=== PATIENT | male | born 2000 | race Two or more races ===

== ENCOUNTER 2023-04-03 14:40 | Emergency (ER) | payer OTHER ==
[~2023-04-03] VITALS: Ht 182.9 cm; Wt 81.6 kg
[~2023-04-03 14:40] MED LIST: KETO10TA2 PO; NORFLEX100MG PO
[2023-04-03 17:56] LABS: HEMATOCRIT 43.3 % (39.0-48.0); HEMOGLOBIN 14.9 g/dL (13-16.00); MEAN CELL VOLUME 84.1 fL (80.0-100.00); MEAN CORPUSCULAR HEMOGLOBIN 28.9 pg (27.00-32.0); MEAN CORPUSCULAR HGB CONC 34.4 g/dl (32.0-36.0); PLATELET COUNT 399 K/uL (150-450); RED BLOOD COUNT 5.14 M/uL (4.00-6.00); RED CELL DISTRIBUTION WIDTH 13.4 % (11.5-14.5)
[2023-04-03 18:12] LABS: PH,URINE 6.5 (5.0-8.0); URINE APPEARANCE Clear; URINE BILIRRUBIN Negative (NEGATIVE); URINE BLOOD Negative; URINE COLOR Yellow; URINE GLUCOSE Negative (NEGATIVE); URINE LEUKOCYTE Negative; URINE NITRATE Negative; URINE PROTEIN 30 (NEGATIVE)
[2023-04-03 18:13] LABS: URINE RBC 6.3 uL (0.0-20.8); URINE WBC 6.4 uL (0.0-23.2)
[2023-04-03 18:50] LABS: ALBUMIN 3.7 gm/dL (3.4-5.0); BILIRUBIN TOTAL 1.12 mg/dL (0.3-1.2); CREATININE SERUM 0.89 mg/dL (0.70-1.30); GFR 108.98; GLOBULINA 3.5 G/DL (2.4-3.5); POTASSIUM 4.05 mEq/L (3.5-5.1); TOTAL PROTEIN 7.2 gm/dL (6.4-8.2)
[2023-04-04 00:31] LABS: HEMATOCRIT 39.2 % (39.0-48.0); HEMOGLOBIN 13.3 g/dL (13-16.00); MEAN CORPUSCULAR HEMOGLOBIN 28.4 pg (27.00-32.0); MEAN CORPUSCULAR HGB CONC 33.8 g/dl (32.0-36.0); PLATELET COUNT 333 K/uL (150-450); RED BLOOD COUNT 4.66 M/uL (4.00-6.00); RED CELL DISTRIBUTION WIDTH 13.5 % (11.5-14.5)
[2023-04-04] MEDS ORDERED: ONDANSETRON ODT4 MG PO (03:40)
[2023-04-04] MEDS ORDERED: DOLOGESIC-DF 51 EACH PO (03:40)
[2023-04-04] MEDS ORDERED: PEPCID40 MG PO (03:40)
== END 2023-04-04 03:58 | disposition home or self-care (01) ==
LOC: EMR PED 14:40 → ER 14:56
PROVIDERS: Emergency Medicine Pediatric Emergency Medicine; General Practice
DX: E86.0 Dehydration (principal); R11.10 Vomiting, unspecified; R53.81 Other malaise; Z20.822 Contact with and (suspected) exposure to COVID-19